=== PATIENT | female | born 1955 | race Caucasian/White ===

== ENCOUNTER 2024-07-07 19:04 | Emergency (ER) | payer OTHER, MEDICARE, BC ==
[~2024-07-07] VITALS: Ht 162.6 cm; Wt 71.8 kg
[2024-07-07 19:12] VITALS: BP 171/80; PULSE 105; RESP 20; TEMP 96.8; O2SAT 95
[2024-07-07] MEDS: bacitracin 15gm ointment TP ONE (20:08)
== END 2024-07-07 20:12 | disposition home or self-care (01) ==
LOC: ER 19:05
DX: S80.11XA Contusion of right lower leg, initial encounter (principal); W19.XXXA Unspecified fall, initial encounter; Y93.89 Activity, other specified; Y92.009 Unspecified place in unspecified non-institutional (private) residence as the place of occurrence of the external cause; Y99.8 Other external cause status
CPT/HCPCS: 99282; A6449